=== PATIENT | female | born 1960 | race Caucasian/White ===

== ENCOUNTER → 2022-03-18 | Outpatient (CLI) | payer OTHER ==
--- NOTE | 2022-03-18 12:38 | CA ---
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 Procedure CPT: Indication: R07.9 CHEST PAIN, UNSPECIFIED ICD-9 Codes: Rhythm: Patient History: Cardiac Medications: Medications in past 24 hours: Contrast: N/A Stress Results Protocol: Kwasi Total dose(mL): Exercise Duration (min:sec): 8:[address] Depression (mm): Angina Score: Lewis Score: METS: 10.3 Resting HR: 84 Resting BP: 115 / 91 Peak HR: 154 Peak BP: 177 / 75 Max Predicted HR: 158 97 % Max Predicted HR Target HR: 134 Double Product: [id number] Stress Summary: The patient's target heart rate was achieved The hemodynamic response to exercise was normal BP Response: Normal Reason for Termination: Reached target heart rate or work-load Cardiac Symptoms: NO SYMPTOMS ECG Analysis Resting ECG: Minor resting ST/T wave changes Stress ECG: Exaggeration of the baseline ST abnormality Arrhythmia: None Echo Analysis Resting Echo: Normal resting echocardiogram. Peak Echo Analysis: No wall motion changes with stress. MEASUREMENTS (Male/Female) Normal Values CONCLUSIONS 1. Good exercise tolerance 2. Normal stress echocardiogram with no evidence of stress induced ischemia. Dr. Caron Solis MD (Electronically Signed) Final Date: 18 March 2022 12:37
== END | disposition home or self-care (01) ==
LOC: RADNMMAIN 09:19
PROVIDERS: ATTEND Family Medicine
DX: R07.9 Chest pain, unspecified (principal)
CPT/HCPCS: 93351